=== PATIENT | female | born 1985 | race Caucasian/White ===

== ENCOUNTER 2023-08-23 12:57 | Outpatient (CLI) | payer BC, SELFPAY ==
[2023-08-23 18:46] LABS: Basophils Percent Auto 0.3 % (0.2-1.2); Eosinophils Absolute Auto 0.1 K/mm3 (0-0.3); Eosinophils Percent Auto 0.8 % (0-4.4); Hematocrit 36.8 % (37.0-47.0); Hemoglobin 11.5 g/dL (12.0-15.0); Immature Granulocyte Absolute 0.03 K/mm3 (0.00-0.031); Immature Granulocyte Percent A 0.3 % (0-0.5); Lymphocytes Absolute Auto 3.12 K/mm3 (0.9-3.2); Lymphocytes Percent Auto 34.1 % (18.3-44.2); Mean Corpuscular HGB Conc 31.3 g/dl (32-36); Mean Corpuscular Hemoglobin 26.5 pg (26-34); Mean Corpuscular Volume 84.8 fl (80-100); Mean Platelet Volume 10.7 fl (7.4-10.4); Monocytes Absolute Auto 0.7 K/mm3 (0.1-0.6); Monocytes Percent Auto 7.8 % (2.6-8.5); Neutrophils Absolute Auto 5.2 K/mm3 (1.3-6.7); Neutrophils Percent Auto 56.7 % (45.5-73.1); Platelet Count Result 321 k/mm3 (150-375); Red Blood Count 4.34 M/mm3 (4.2-5.4); Red Cell Distribution Width 16.9 % (11.5-14.5); White Blood Count 9.2 K/mm3 (4.5-10.0)
[2023-08-23 19:07] LABS: Alanine Aminotransferase 23 U/L (6-35); Albumin Level 4.2 g/dL (3.5-5.1); Alkaline Phosphatase 71 U/L (38-126); Anion Gap 5 mmol/L (8-16); Aspartate Amino Transferase 64 U/L (14-36); Bilirubin,Total 0.4 mg/dL (0.2-1.3); Blood Urea Nitrogen 14 mg/dL (7-17); Calcium 9.3 mg/dL (8.4-10.2); Carbon Dioxide 26 mmol/L (22-30); Chloride 104 mmol/L (98-107); Estimated Glomerular Filt Rate > 60; Glucose 88 mg/dL (65-110); Potassium 3.8 mmol/L (3.4-5.0); Sodium 135 mmol/L (137-145)
[2023-08-23 20:16] LABS: Ferritin 6.14 ng/mL (6.24-137)
== END 2023-08-23 12:58 | disposition home or self-care (01) ==
LOC: ANHGOSHLAB 12:59
PROVIDERS: PCP Nurse Practitioner; Visit Provider Nurse Practitioner
DX: K21.9 Gastro-esophageal reflux disease without esophagitis (principal); E61.1 Iron deficiency
CPT/HCPCS: 36415; 80053; 82728; 85025

== ENCOUNTER 2023-09-07 01:21 | Day surgery (SDC) | payer BC, SELFPAY ==
[2023-08-29 15:17] VITALS: BMI 29.0
--- NOTE | 2023-09-05 09:35 | SUR.PREOP ---
Patient called regarding upcoming procedure. Reviewed preop instructions, appointment times, and procedure prep.
[2023-09-07 10:44] VITALS: BP 103/83; PULSE 83; RESP 18; TEMP 36.4; O2SAT 100; BMI 28.3
[2023-09-07] MEDS: LACTATED RINGERS 1,000 ML 150 ML IV CONT (10:47)
--- NOTE | 2023-09-07 10:52 | WPDANESEPPF ---
Anes - Initial Pre Proc Eval Procedure: Operation Date: 09/07/23 12:30 Proposed Procedures p Esophagogastroduodenoscopy & Colonoscopy - Gary Granados MD Date/Time: 09/07/23 10:52 Surgeon: Gary Granados MD Pre Op Diagnosis: Iron Deficiency Anemia,GERD Patient Data Age: 38 Gender: F Height: 1.73 m Weight: 84.6 kg Last Vital Signs Temp 97.5 F L 09/07/23 10:44 Pulse 83 09/07/23 10:44 Resp 18 09/07/23 10:44 BP 103/83 09/07/23 10:44 Pulse Ox 100 09/07/23 10:44 O2 Del Method Room Air 09/07/23 10:44 Allergies Allergy/AdvReac Type Severity Reaction Status Date / Time No Known Allergies Allergy Verified 09/07/23 10:41 Home Medications Medication Instructions Recorded Confirmed Type Saccharomyces boulardii 250 mg 250 mg PO DAILY 08/17/23 09/07/23 History capsule (Daily Probiotic (S. boulardii)) copper 380 square mm intrauterine 1 device intrauterine ONCE 08/17/23 09/07/23 History device (ParaGard T 380A) omeprazole magnesium 20 mg 20 mg PO DAILY #90 tabs 08/17/23 09/07/23 Rx tablet,delayed release (Prilosec OTC) venlafaxine 37.5 mg 37.5 mg PO DAILY #90 tabs 08/17/23 09/07/23 Rx tablet,extended release 24 hr ferrous sulfate 325 mg (65 mg 65 mg PO DAILY 08/29/23 09/07/23 History iron) capsule,extended release Patient hx anesthesia problems: none Family hx anesthesia problems: none Results Review: All pre-operative results and documents have been reviewed as part of the pre-operative evaluation. [facility] Past Medical History Medical History Madeline infection Chronic GERD Family history of esophageal cancer Iron deficiency Obesity Surgical History Surgical History H/O oral surgery 1993, 2010 H/O removal of cyst 2017 Family History Family History Father , Father at age of 48 due to esophageal cancer Esophageal cancer Alcoholism Mother Throat cancer Heart disease Alcoholism Depression Hypertension Grandparent Hypertension Depression Social History Social History Smoking status: Former smoker Tobacco type: cigarettes Smoking end date: 06/13/14 Alcohol intake: current Alcohol use details: rarely-once a month Substance use: never Substance use type: does not use Living arrangements: with family Spiritual care concerns: No Anes - Eval Final PreProcedure Day of Procedure 09/07/23 10:52 Patient weight: normal Heart: regular rate and rhythm Lungs: clear to auscultation Airway: Mallampati scale class II Neurological: alert and oriented Last oral intake: >/= 8 hours ASA classification: II Emergent: no Anesthetic plan: proceed Anesthesia type and monitoring: general GIVS and standard monitoring Results Review: All pre-operative results and documents have been reviewed as part of the pre-operative evaluation. Informed Consent: The patient's anesthetic plan and its attendant risks and benefits were discussed with the patient/family/POA. Questions were solicited and answers provided to the satisfaction of the patient/family/POA.
--- NOTE | 2023-09-07 11:54 | PM.HPGS ---
History of Present Illness History of Present Illness Consent: Risks, benefits, and alternatives have been discussed and questions answered. Patient agrees to proceed with procedure. Chief complaint: Iron Deficiency Anemia,GERD Narrative: Cynthia Coles is a 38 year old female with gerd on omeprazole for over 15 years, father had esophageal cancer, if she skips her ppi then will get symptomatic. Also mild BRADLEY, low ferritin, never had colonoscopy but she also has heavy periods. She does feel like she has been having babak concerns both vaginally and rectally that will dissipate after 1-2 courses of but then will immediately come back.? Review of Systems Review of Systems: All systems reviewed & are unremarkable except as noted in HPI and below PMFSH Past Medical History Medical History Babak infection Chronic GERD Family history of esophageal cancer Iron deficiency Obesity Surgical History Surgical History H/O oral surgery 1993, 2010 H/O removal of cyst 2016 Family History Family History Father , Father at age of 48 due to esophageal cancer Esophageal cancer Alcoholism Mother Throat cancer Heart disease Alcoholism Depression Hypertension Grandparent Hypertension Depression Social History Social History Smoking status: Former smoker Tobacco type: cigarettes Smoking end date: 06/13/14 Alcohol intake: current Alcohol use details: rarely-once a month Substance use: never Substance use type: does not use Living arrangements: with family Spiritual care concerns: No Meds Home Medications and Allergies Home Medications Medication Instructions Recorded Confirmed Type Saccharomyces boulardii 250 mg 250 mg PO DAILY 08/17/23 09/07/23 History capsule (Daily Probiotic (S. boulardii)) copper 380 square mm intrauterine 1 device intrauterine ONCE 08/17/23 09/07/23 History device (ParaGard T 380A) omeprazole magnesium 20 mg 20 mg PO DAILY #90 tabs 08/17/23 09/07/23 Rx tablet,delayed release (Prilosec OTC) venlafaxine 37.5 mg 37.5 mg PO DAILY #90 tabs 08/17/23 09/07/23 Rx tablet,extended release 24 hr ferrous sulfate 325 mg (65 mg 65 mg PO DAILY 08/29/23 09/07/23 History iron) capsule,extended release Allergies Allergy/AdvReac Type Severity Reaction Status Date / Time No Known Allergies Allergy Verified 09/07/23 10:41 Vital Signs Vital Signs - 24 hr 09/07/23 10:44 Temperature 97.5 F L Pulse Rate 83 Respiratory Rate 18 Blood Pressure 103/83 Pulse Oximetry 100 Oxygen Delivery Room Air Exam Const: General: comfortable and no acute distress HENMT: Face/Nose/Sinus: Normal nares present Eyes: General: appearance normal, both eyes and all related structures Neck: Neck: no JVD Resp: Auscultation: clear to auscultation bilaterally Cardio: Rate: regular rate Rhythm: regular rhythm GI: Inspection: non-distended GI Palp: Yes Soft to palpation Skin: General skin exam: normal color Neuro: General: gait normal Speech: normal speech Extrem: General: normal to inspection Psych: Mental Status: mental status grossly normal Assessment and Plan Assessment and plan (1) Chronic GERD: Code(s): K21.9 - Gastro-esophageal reflux disease without esophagitis Status: Acute Assessment and Plan: egd (2) Family history of esophageal cancer: Code(s): Z80.0 - Family history of malignant neoplasm of digestive organs Status: Acute (3) Iron deficiency: Code(s): E61.1 - Iron deficiency Status: Acute Assessment and Plan: colonoscopy
--- NOTE | 2023-09-07 12:07 | SUR.OPER ---
EGD ended at 1202, colonoscopy began at 1207
[2023-09-07 12:20] VITALS: BP 80/45; PULSE 80; RESP 18; O2SAT 100
[2023-09-07 12:30] VITALS: BP 98/55; PULSE 74; RESP 18; O2SAT 100
[2023-09-07 12:40] VITALS: BP 100/63; PULSE 70; RESP 18; O2SAT 100
== END 2023-09-07 12:57 | disposition home or self-care (01) ==
PROVIDERS: PCP Nurse Practitioner; Visit Provider Internal Medicine Gastroenterology
PROC: 0DJ08ZZ Inspection of Upper Intestinal Tract, Via Natural or Artificial Opening Endoscopic (ICD-10-PCS; CPT 43235; principal; 2023-09-07 12:30)
DX: D64.9 Anemia, unspecified (principal); D12.8 Benign neoplasm of rectum; K64.8 Other hemorrhoids; K21.9 Gastro-esophageal reflux disease without esophagitis; Z80.0 Family history of malignant neoplasm of digestive organs; Z87.891 Personal history of nicotine dependence
CPT/HCPCS: 45385; 45380; 43239; 88305; J2704; J7120

== ENCOUNTER 2023-10-07 15:43 | Outpatient (CLI) | payer BC, SELFPAY ==
[2023-10-07 18:41] LABS: Basophils Absolute Auto 0.1 K/mm3 (0.0-0.1); Basophils Percent Auto 0.5 % (0.2-1.2); Eosinophils Absolute Auto 0.1 K/mm3 (0-0.3); Eosinophils Percent Auto 1.3 % (0-4.4); Hematocrit 40.5 % (37.0-47.0); Hemoglobin 12.8 g/dL (12.0-15.0); Immature Granulocyte Absolute 0.02 K/mm3 (0.00-0.031); Immature Granulocyte Percent A 0.2 % (0-0.5); Lymphocytes Absolute Auto 3.14 K/mm3 (0.9-3.2); Lymphocytes Percent Auto 33.5 % (18.3-44.2); Mean Corpuscular HGB Conc 31.6 g/dl (32-36); Mean Corpuscular Hemoglobin 28.1 pg (26-34); Mean Corpuscular Volume 88.8 fl (80-100); Mean Platelet Volume 10.7 fl (7.4-10.4); Monocytes Absolute Auto 0.5 K/mm3 (0.1-0.6); Monocytes Percent Auto 5.8 % (2.6-8.5); Neutrophils Absolute Auto 5.5 K/mm3 (1.3-6.7); Neutrophils Percent Auto 58.7 % (45.5-73.1); Platelet Count Result 342 k/mm3 (150-375); Red Blood Count 4.56 M/mm3 (4.2-5.4); Red Cell Distribution Width 17.5 % (11.5-14.5); White Blood Count 9.4 K/mm3 (4.5-10.0)
[2023-10-07 19:05] LABS: Alanine Aminotransferase 15 U/L (6-35); Albumin Level 4.3 g/dL (3.5-5.1); Alkaline Phosphatase 74 U/L (38-126); Aspartate Amino Transferase 18 U/L (14-36); Bilirubin,Total 0.4 mg/dL (0.2-1.3)
== END 2023-10-07 15:44 | disposition home or self-care (01) ==
LOC: ANHGOSHLAB 15:44
PROVIDERS: PCP Nurse Practitioner; Visit Provider Nurse Practitioner
DX: R74.8 Abnormal levels of other serum enzymes (principal); E61.1 Iron deficiency; K21.9 Gastro-esophageal reflux disease without esophagitis
CPT/HCPCS: 36415; 80076; 82728; 85025

== ENCOUNTER 2024-03-26 15:18 | Outpatient (CLI) | payer BC, SELFPAY ==
[2024-03-26 19:01] LABS: Basophils Absolute Auto 0.1 K/mm3 (0.0-0.1); Basophils Percent Auto 0.8 % (0.2-1.2); Eosinophils Absolute Auto 0.1 K/mm3 (0-0.3); Eosinophils Percent Auto 1.4 % (0-4.4); Hematocrit 41.9 % (37.0-47.0); Hemoglobin 13.4 g/dL (12.0-15.0); Immature Granulocyte Absolute 0.02 K/mm3 (0.00-0.031); Immature Granulocyte Percent A 0.2 % (0-0.5); Lymphocytes Absolute Auto 3.17 K/mm3 (0.9-3.2); Lymphocytes Percent Auto 34.8 % (18.3-44.2); Mean Corpuscular Hemoglobin 30.8 pg (26-34); Mean Corpuscular Volume 96.3 fl (80-100); Mean Platelet Volume 10.6 fl (7.4-10.4); Monocytes Absolute Auto 0.7 K/mm3 (0.1-0.6); Monocytes Percent Auto 7.1 % (2.6-8.5); Neutrophils Absolute Auto 5.1 K/mm3 (1.3-6.7); Neutrophils Percent Auto 55.7 % (45.5-73.1); Platelet Count Result 311 k/mm3 (150-375); Red Blood Count 4.35 M/mm3 (4.2-5.4); Red Cell Distribution Width 13.4 % (11.5-14.5); White Blood Count 9.1 K/mm3 (4.5-10.0)
== END 2024-03-26 15:19 | disposition home or self-care (01) ==
LOC: ANHGOSHLAB 15:21
PROVIDERS: PCP Nurse Practitioner; Visit Provider Nurse Practitioner
DX: E61.1 Iron deficiency (principal)
CPT/HCPCS: 36415; 82728; 85025

== ENCOUNTER 2024-10-10 08:17 | Outpatient (CLI) | payer BC, SELFPAY ==
--- OUTSIDE RECORDS SUMMARY | 2024-10-10 08:25 | XMS_ITS | Continuity of Care Document ---
Author Organization [facility] Address [address] [place] [address] [place] [address] Phone Care Team Providers Care Crm Administrator Name Role Phone Damian Negrete MD Unavailable Unavailable Allergies, Adverse Reactions, Alerts Substance Reaction Status Criticality No Known Allergies Active No Inform ation Medications Medication Instructions Dosage Effective Dates (start - stop) Status Comments omeprazole 20 mg capsule,delayed release take 1 capsule by oral route every day before a meal 20 MG - Active Procedures Procedure Date OFFICE/OUTPATIENT VISIT, [facility] PREV VISIT, NEW, AGE 18-39 OFFICE/OUTPATIENT VISIT, NEW Advance Directives Directive Yes / No Effective Date File Name No Information Encounters Encounter Description Practice Location Reason(s) For Visit Diagnoses Date Provider Providers Copied on Encounter OFFICE/OUTPAT IENT VISIT, EST [facility], [address], [id number], [place] tel:[phone] [facility] GERD1 (chief complaint) iron (chief complaint) yeast (chief complaint) Other urogenital candidiasisIron deficiencyGERD w/o esophagitis 3 Caden Salgado. [address], [id number] , [place]. tel:[phone] PREV VISIT, NEW, AGE 18-39 [facility], [address] [place], [id number], [place] tel:[phone] [facility] physical (chief complaint) Encounter for general adult medical exam w abnormal findingsGERD w/o esophagitis 3 Caden Salgado. [address], [place], [place], [id number] , [place]. tel:[phone] Family History Family Member Type Diagnosis Age At Onset Mother Problem throat CA recovered Brother Problem Alive and well Mother Problem Coronary artery disease 62 Father Problem of 48 esophageal CA Sister Problem endometriosis Payers Payer name Insurance type Covered green party ID Authoriza tion(s) No Information Social History Type Description Quantity Date Captured Comments Alcohol Use Details No Caffeine Use Details Unknown Tobacco Use Status Ex-cigarette smoker 023 Smoking Status Former smoker Sex Female Vital Signs Date / Time: Height Weight BMI Pulse Rate Blood Pressure Temperature Respiratory Rate Body Surface Area Head Circumference BMI percentile Pulse Ox Inhaled Ox 11:35 AM 68.00 in 198.80 lbs 30.2 3 kg/m eter (2) 75 /min 135/84 mm[Hg] 98.3 F 16 /min Chief Complaint And Reason For Visit From encounter dated '03/15/2023 11:34'. GERD1 (chief complaint). Description: Pt has chronic GERD and she has been taking omeprazole for more than 15 years .Pt denies any dysphagia or GERD symptoms while on omeprazole. Pt denies any abd pain Pt has lobo with GI doctor next week to discuss EGD. Pt has daily GERD without omeprazole Pt also failed pepcid iron (chief complaint). Description: Pt has low iron Pt denies any GI bleeding Pt does have heavy period and she is on IUD but her period is still heavy. Pt c/o chronic fatigue. Pt feels occasional dizziness Pt denies any sob or chest pain. yeast (chief complaint). Description: Pt states that she has recurrent vaginal yeast infection and her stool appears whitish color and her face is oily with dandruff and she thinks that she has yeastovergrowth. Pt took several rounds of diflucan which did help in the past but she thinks that the duration of diflucan is too short to cure it. She was only given 1-3 days of diflucan in the past . Plan Of Treatment Date Type Action Status Referral Ordered: Hematology (related to Iron deficiency) ordered Referral Ordered: Referrals: Hematology. Evaluate and treat ordered Referral Ordered: ESOPHAGUS ENDOSCOPY ordered History Of Present Illness Encounter Date Complaint History Of Prese nt Illness yeast Pt states that s he has recurrent vaginal yeast infection and her stool appears whitish color and her face is oily with dandruff and she thinks that she has yeast overgrowth. Pt took several rounds of diflucan which did help in the past but she thinks that the duration of diflucan is too short to cure it. She was only given 1-3 days of diflucan in the past . GERD1 Pt has chronic G ERD and she has been taking omeprazole for more than 15 years .Pt denies any dysphagia or GERD symptoms while on omeprazole. Pt denies any abd pain Pt has lobo with GI doctor next week to discuss EGD. Pt has daily GERD without omeprazole Pt also failed pepcid iron Pt has low iron Pt denies any GI bleeding Pt does have heavy period and she is on IUD but her period is still heavy. Pt c/o chronic fatigue. Pt feels occasional dizziness Pt denies any sob or chest pain. physical Pt needs annual physical. pt has chronic GERd and she takes omeprazole daily for 18 years. Pt has daily GERd without omeprazole. Pt failed pepcid. Pt denies any abd pain. 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 Pt recently had cervical biopsy and she is waiting for results. 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 Instructions Date Instruction Additional Infor randy No Information Assessments Type Assessment Date assessment Other urogenital candidiasis Mar assessment Iron deficiency assessment GERD w/o esophagitis Mental Status Date Cognitive Assessment Orientation - Arthur ed to time, place, person, situation.
[2024-10-10 20:08] LABS: Basophils Absolute Auto 0.1 K/mm3 (0.0-0.1); Basophils Percent Auto 0.7 % (0.2-1.2); Eosinophils Absolute Auto 0.1 K/mm3 (0-0.3); Eosinophils Percent Auto 1.2 % (0-4.4); Hematocrit 41.3 % (37.0-47.0); Hemoglobin 13.3 g/dL (12.0-15.0); Immature Granulocyte Absolute 0.02 K/mm3 (0.00-0.031); Immature Granulocyte Percent A 0.3 % (0-0.5); Lymphocytes Absolute Auto 1.94 K/mm3 (0.9-3.2); Mean Corpuscular HGB Conc 32.2 g/dl (32-36); Mean Corpuscular Hemoglobin 30.1 pg (26-34); Mean Corpuscular Volume 93.4 fl (80-100); Mean Platelet Volume 10.3 fl (7.4-10.4); Monocytes Absolute Auto 0.5 K/mm3 (0.1-0.6); Neutrophils Absolute Auto 4.8 K/mm3 (1.3-6.7); Neutrophils Percent Auto 64.8 % (45.5-73.1); Platelet Count Result 320 k/mm3 (150-375); Red Blood Count 4.42 M/mm3 (4.2-5.4); Red Cell Distribution Width 13.2 % (11.5-14.5); White Blood Count 7.5 K/mm3 (4.5-10.0)
[2024-10-10 21:07] LABS: Iron 146 ug/dL (37-170)
[2024-10-10 21:18] LABS: Percent Iron Saturation 42 % (20-50)
[2024-10-10 21:30] LABS: Alanine Aminotransferase 25 U/L (6-35); Albumin Level 4.2 g/dL (3.5-5.1); Alkaline Phosphatase 80 U/L (38-126); Anion Gap 9 mmol/L (4-12); Aspartate Amino Transferase 38 U/L (14-36); Bilirubin,Total 0.6 mg/dL (0.2-1.3); Blood Urea Nitrogen 11 mg/dL (7-17); Calcium 9.2 mg/dL (8.4-10.2); Carbon Dioxide 25 mmol/L (22-30); Chloride 104 mmol/L (98-107); Cholesterol 185 mg/dL (0-200); Estimated Glomerular Filt Rate > 60; Glucose 76 mg/dL (65-110); HDL Direct 45 mg/dL; Potassium 4.4 mmol/L (3.4-5.0); Sodium 138 mmol/L (137-145); Triglycerides 101 mg/dL (<150)
[2024-10-10 21:40] LABS: LDL Cholesterol Direct 96 mg/dL; Vitamin D 25 Hydroxy 17.7 ng/mL
== END 2024-10-10 08:18 | disposition home or self-care (01) ==
LOC: ANHGOSHLAB 08:19
PROVIDERS: PCP Nurse Practitioner; Visit Provider Nurse Practitioner
DX: Z13.220 Encounter for screening for lipoid disorders (principal); E61.1 Iron deficiency; F41.9 Anxiety disorder, unspecified; E55.9 Vitamin D deficiency, unspecified
CPT/HCPCS: 36415; 80053; 80061; 82306; 82728; 83540; 83550; 84443; 85025

== ENCOUNTER 2025-05-27 11:44 | Outpatient (CLI) | payer BC, SELFPAY ==
--- NOTE | ~2025-05-27 | CT_ITS ---
EXAM/PROCEDURE: CT soft tissue neck w con HISTORY: Cervicalgia, left sided ear and neck pain COMPARISON: None available. TECHNIQUE: Contrast-enhanced soft tissue neck CT FINDINGS: Nonpathologic sized bilateral jugulodigastric, posterior triangle, submental, and sternocleidomastoid lymph nodes are present. No dominant mass or drainable fluid collection. Lymph nodes on the left side are slightly more prominent. 8 mm enhancing nodule in the anterior parotid gland image 33 series 2. The periauricular soft tissues appear symmetric. Mastoid air cells and temporal bones appear grossly symmetric. Vascular structures are patent. Moderately severe degenerative changes are present at the C6-7 level but no large disc herniations or spinal canal stenosis. No gross acute process seen in the visualized portions of the upper chest, or intracranial contents. Mild sphenoidal mucoperiosteal thickening present. Parapharyngeal and retropharyngeal spaces appear normal. Fossae of Rosenmuller are symmetric and normal in appearance. IMPRESSION: 1. Numerous nonpathologic sized lymph nodes which are bilateral, slightly more prominent on the left side. 2. 8 mm nodule in the anterior left parotid gland. 3. No abscess or aggressive soft tissue process such as cellulitis appreciated. 4. Correlate with follow-up clinical presentation and exam. The left parotid gland nodule should be reevaluated at least in [address] exam. Correlate with follow-up CT examination sooner as clinically appropriate. Reviewed, dictated and finalized at location A. NAGE INSPECTOR IMPRESSION: 1. Numerous nonpathologic sized lymph nodes which are bilateral, slightly more prominent on the left side. 2. 8 mm nodule in the anterior left parotid gland. 3. No abscess or aggressive soft tissue process such as cellulitis appreciated. 4. Correlate with follow-up clinical presentation and exam. The left parotid gl and nodule should be reevaluated at least in [address] exam. Radha elate with follow-up CT examination sooner as clinically appropriate.
== END 2025-05-27 11:45 | disposition home or self-care (01) ==
LOC: MICIMG 11:44
PROVIDERS: PCP Nurse Practitioner; Visit Provider Otolaryngology
DX: K11.8 Other diseases of salivary glands (principal); R59.1 Generalized enlarged lymph nodes
CPT/HCPCS: 70491; Q9967